=== PATIENT | male | born 1960 | race Caucasian/White ===

== ENCOUNTER 2024-12-26 13:49 | Inpatient (IN) | payer OTHER ==
[~2024-12-26] VITALS: Ht 177.8 cm; Wt 95.5 kg
[~2024-12-26 13:49] MED LIST: albumin (human) 25% 100 ML IV solution IV ONE
[2024-12-26 14:06] LABS: BASOPHILS % (AUTO) 0.2 % (0-1); EOSINOPHILS % (AUTO) 0.1 % (0-6); HEMATOCRIT 48.6 % (42.0-52.0); HEMOGLOBIN 15.9 g/dl (14.0-17.9); LYMPHOCYTES # (AUTO) 1.6 X10'3 (1.1-4.8); LYMPHOCYTES % (AUTO) 10.3 % (21-51); MEAN CORPUSCULAR HEMOGLOBIN 29.9 PG (27.0-31.0); MEAN CORPUSCULAR HGB CONC 32.8 g/dL (33.0-36.5); MEAN CORPUSCULAR VOLUME 91.2 FL (78-98); MEAN PLATELET VOLUME 8.1 FL (7.4-10.4); MONOCYTES # (AUTO) 0.9 X10'3 (0-0.9); MONOCYTES % (AUTO) 5.8 % (2-12); NEUTROPHILS # (AUTO) 13.3 X10'3 (1.8-7.7); NEUTROPHILS % (AUTO) 83.6 % (42-75); PLATELET COUNT 235 X10'3 (140-440); RED BLOOD COUNT 5.33 X10'6 (4.70-6.10); RED CELL DISTRIBUTION WIDTH 13.6 % (11.5-14.5); WHITE BLOOD COUNT 15.9 X10'3 (4.5-11.0)
[2024-12-26 14:36] LABS: ALANINE AMINOTRANSFERASE 33 U/L (12-78); ALKALINE PHOSPHATASE 84 IU/L (46-116); ANION GAP 5 (8-16); ASPARTATE AMINO TRANSFERASE 26 U/L (10-37); BILIRUBIN,TOTAL 0.6 MG/DL (0.1-1.0); BLOOD UREA NITROGEN 17 MG/DL (7-18); BUN/CREATININE RATIO 17.9 (10.0-20.0); CALCIUM 8.7 MG/DL (8.5-10.1); CHLORIDE 101 MMOL/L (99-107); CREATININE 0.95 MG/DL (0.60-1.10); GLUCOSE 102 MG/DL (70-104); POTASSIUM 4.6 MMOL/L (3.5-5.1); PRO BRAIN NATRIURETIC PEPTIDE 265 PG/ML (0-125); SODIUM 137 MMOL/L (135-145); TOTAL CARBON DIOXIDE 31.1 MMOL/L (24-32); TOTAL PROTEIN 7.9 G/DL (6.4-8.2); eCRCL 82 ML/MIN; eGFR 80 ML/MIN
[2024-12-26] MEDS ORDERED: heparin 10,000 units/1 ML INJ IV PRN (15:20)
[2024-12-26] MEDS: aspirin 325mg tablet, delayed-release (Ecotrin) PO ONE (15:22)
[2024-12-26] MEDS: heparin 10,000 units/1 ML INJ IV ONE (15:37)
[2024-12-26] MEDS: MESSAGE TO NURSING IV ONE (15:42)
[2024-12-26] MEDS: heparin 25,000 UNIT/250ml bag 250 ML IV PRN (15:42)
[2024-12-26] MEDS: HEPARIN DRIP-CARDIAC**PHARMACIST-TO-DOSE IV ONE (15:43)
[2024-12-26] MEDS ORDERED: potassium Cl 20 mEq SR tablet PO PRN ×2 (16:05)
[2024-12-26] MEDS ORDERED: morphine 2 MG/ML inj. syringe IV PRN ×2 (16:05)
[2024-12-26] MEDS ORDERED: magnesium sulf-water 2g/50mL 50 ML IV PRN (16:05)
[2024-12-26] MEDS ORDERED: potassium Cl 40MEQ/1/2NS 520ml 520 ML IV PRN (16:05)
[2024-12-26] MEDS ORDERED: acetaminophen 325mg tablet PO PRN (16:05)
[2024-12-26] MEDS ORDERED: magnesium sulf-water 4G/100mL 100 ML IV PRN (16:05)
[2024-12-26] MEDS ORDERED: ondansetron/PF 4mg/2ml inj IV PRN (16:05)
[2024-12-26] MEDS ORDERED: magnesium hydroxide 30ml (MOM) UD suspension PO PRN (16:05)
[2024-12-26] MEDS ORDERED: mag hydrox/Alum hydrox/simeth 30ml oral suspension PO PRN (16:05)
[2024-12-26] MEDS: PERFLUTREN PROTEIN-A MICROSPHR (Optison) 0.22 MG/ML 3ML VIAL IV ONE (16:05)
[2024-12-26] MEDS ORDERED: ATOR20TA PO (16:33)
[2024-12-26] MEDS ORDERED: MELO-100 PO (16:33)
[2024-12-26] MEDS: atorvastatin 20mg tablet PO ONE (16:56)
[2024-12-26] MEDS: normal saline 1000ml 1,000 ML IV SCH (16:57)
[2024-12-26] MEDS ORDERED: regadenoson 0.4mg/5ml syringe IV PRN (17:55)
[2024-12-26] MEDS ORDERED: nitroGLYCERIN 0.4mg SUBLingual tab SL PRN (17:55)
[2024-12-26] MEDS ORDERED: metoprolol tartrate 1mg/ml inj IV PRN (17:55)
[2024-12-26] MEDS ORDERED: aminophylline 500mg/20ml vial IV PRN (17:55)
[2024-12-26] MEDS ORDERED: fentaNYL/PF 50MCG/1 ML 2ML syringe ONE (18:51)
[2024-12-26] MEDS ORDERED: heparin 1,000unit/ml 10ml vial 0 ML ONE (18:51)
[2024-12-26] MEDS ORDERED: iohexol 350 MG/ML 50ML vial IV ONE ×2 (18:51→19:42)
[2024-12-26] MEDS ORDERED: midazolam 1 mg/ML 2ml injection ONE ×2 (18:51→19:55)
[2024-12-26] MEDS ORDERED: LIDOcaine 1% 30ml preserv. free vial ONE (18:51)
[2024-12-26] MEDS ORDERED: tirofiban 12.5mg in NS 250mL 250 ML IV ONE (18:52)
[2024-12-26] MEDS ORDERED: atropine 0.1mg/ml 10ml syringe ONE (18:52)
[2024-12-26] MEDS ORDERED: epiNEPHrine 0.1mg/ml 10ml syringe ONE (18:52)
[2024-12-26] MEDS ORDERED: iohexol 350MG/ML 100ml bottle IV ONE (18:52)
[2024-12-26] MEDS ORDERED: nitroGLYCERIN 500mcg/5mL D5W 5 ML IV ONE (19:28)
[2024-12-26] MEDS ORDERED: nitroGLYCERIN-Tridil 50MG/D5W 250 ML IV ONE (19:29)
[2024-12-26] MEDS ORDERED: metoprolol tartrate 1mg/ml inj IV ONE (19:34)
[2024-12-26] MEDS ORDERED: morphine 2 MG/ML inj. syringe ONE (19:48)
[2024-12-26] MEDS ORDERED: ondansetron/PF 4mg/2ml inj ONE (19:53)
[2024-12-26] MEDS: K and/or MAG REPLACEMENT MC SCH (20:00)
[2024-12-26] MEDS: docusate sod 100mg capsule PO SCH (20:00)
[2024-12-26] MEDS: ceFAZolin 2gm in dextrose, iso 50 ML IV ONE (20:40)
[2024-12-26] MEDS ORDERED: VANCOMYCIN/H2O 1.5g/300mL PB 300 ML IV ONE (20:40)
[2024-12-26] MEDS ORDERED: dextrose 50%-water 50ml dispensing syringe IV PRN (20:40)
[2024-12-26] MEDS: Insulin Reg/NS 100units/100mL 100 ML IV SCH (20:40)
[2024-12-26] MEDS ORDERED: insulin glargine (Lantus) pen - multi-dose SQ PRN (20:40)
[2024-12-26] MEDS: MESSAGE TO PHARMACY IJ ONE (20:40)
[2024-12-26] MEDS: VANCOMYCIN/WATER FOR INJ (PEG) 1.5GM/300 ML IVPB IV ONE (20:50)
[2024-12-26] MEDS ORDERED: gelatin sponge, absorbable (Gelfoam 100) sponge TP ONE (20:56)
[2024-12-26] MEDS ORDERED: BUPIVAcaine 0.5% inj/PF 30 ML ONE (20:56)
[2024-12-26] MEDS ORDERED: ceFAZolin 1000mg inj ONE (20:56)
[2024-12-26] MEDS: gelatin sponge, absorbable (Gelfoam-100 compressed) sponge TP ONE (21:00)
[2024-12-26] MEDS: ceFAZolin 1000mg inj IR ONE (21:00)
[2024-12-26] MEDS ORDERED: MIDAZolam 1 MG/ML 5ML VIAL ONE (21:19)
[2024-12-26] MEDS ORDERED: SUfentanil 50mcg/ml 1ml amp IV ONE (21:20)
[2024-12-26] MEDS ORDERED: rocuronium 10mg/ml inj IV ONE ×2 (21:23)
[2024-12-26] MEDS ORDERED: propofol 10mg/ml 20ml vial IV ONE (21:36)
[2024-12-26] MEDS ORDERED: vancomycin 1,000mg inj ONE (22:24)
[2024-12-26 22:43] LABS: ABG BASE EXCESS -2.5 mmol/L (-2.0-3.0); ABG HCO3 23.2 mmol/L (21.0-28.0); ABG OXYGEN SATURATION 94.7 % (94.0-98.0); ABG PCO2 43.3 mmHg (35.0-48.0); ABG PH 7.347 (7.350-7.450); ABG PO2 74.8 mmHg (83.0-108.0); CL (ABG) 103 mmol/L (98-107); FCOHb 0.4 % (0.5-1.5); FHHb 5.3 % (0.0-5.0); FMetHb 0.3 % (0.0-1.5); GLUCOSE (ABG) 118 mg/dl (65-95); IONIZED CA (ABG) 1.07 mmol/L (1.15-1.33); K (ABG) 3.6 mmol/L (3.40-4.50); TOTAL HEMOGLOBIN 14.4 G/dl (13.5-17.5)
[2024-12-26 23:31] LABS: ABG BASE EXCESS VENOUS -3.8 mmol/L (-2.0-3.0); ABG HCO3 VENOUS 25.4 mmol/L (22.0-29.0); ABG OXYGEN SATURATION VENOUS 82.7 % (60.0-85.0); ABG PH (VENOUS) 7.209 (7.320-7.430); ABG PO2 VENOUS 54.5 mmHg (23.0-48.0); CL (ABG) 103 mmol/L (98-107); FCOHb VENOUS 0.6 % (0.5-1.5); FHHb VENOUS 17.2 %; FMetHb VENOUS 0.1 % (0.5-1.5); FO2Hb VENOUS 82.1 % (0-80.0); GLUCOSE (ABG) 143 mg/dl (65-95); IONIZED CA (ABG) 1.08 mmol/L (1.15-1.33); K (ABG) 4.5 mmol/L (3.40-4.50); TOTAL HEMOGLOBIN 14.6 G/dl (13.5-17.5)
[2024-12-27] VITALS (36 sets, daily range): BP systolic 84–126; BP diastolic 48–76; PULSE 93–117; RESP 14–24; O2SAT 91–99
[2024-12-27 00:35] LABS: ABG BASE EXCESS -5.4 mmol/L (-2.0-3.0); ABG HCO3 21.2 mmol/L (21.0-28.0); ABG PH 7.282 (7.350-7.450); ABG PO2 197.4 mmHg (83.0-108.0); CL (ABG) 102 mmol/L (98-107); FCOHb 0.3 % (0.5-1.5); FMetHb 0.3 % (0.0-1.5); FO2Hb 98.4 % (94.0-98.0); GLUCOSE (ABG) 145 mg/dl (65-95); IONIZED CA (ABG) 0.94 mmol/L (1.15-1.33); K (ABG) 5.9 mmol/L (3.40-4.50); TOTAL HEMOGLOBIN 10.9 G/dl (13.5-17.5)
[2024-12-27 00:54] LABS: ABG BASE EXCESS -2.8 mmol/L (-2.0-3.0); ABG HCO3 22.7 mmol/L (21.0-28.0); ABG OXYGEN SATURATION 99.2 % (94.0-98.0); ABG PCO2 42.2 mmHg (35.0-48.0); ABG PH 7.348 (7.350-7.450); ABG PO2 259.1 mmHg (83.0-108.0); CL (ABG) 103 mmol/L (98-107); FCOHb 0.3 % (0.5-1.5); FHHb 0.8 % (0.0-5.0); FMetHb 0.3 % (0.0-1.5); FO2Hb 98.6 % (94.0-98.0); GLUCOSE (ABG) 147 mg/dl (65-95); IONIZED CA (ABG) 0.88 mmol/L (1.15-1.33); K (ABG) 5.4 mmol/L (3.40-4.50); TOTAL HEMOGLOBIN 11.1 G/dl (13.5-17.5)
[2024-12-27 01:13] LABS: ABG HCO3 VENOUS 25.4 mmol/L (22.0-29.0); ABG OXYGEN SATURATION VENOUS 87.2 % (60.0-85.0); ABG PCO2 VENOUS 44.4 mmHg (38.0-54.0); ABG PH (VENOUS) 7.375 (7.320-7.430); ABG PO2 VENOUS 54.2 mmHg (23.0-48.0); CL (ABG) 102 mmol/L (98-107); FCOHb VENOUS 0.3 % (0.5-1.5); FHHb VENOUS 12.7 %; FMetHb VENOUS 0.3 % (0.5-1.5); FO2Hb VENOUS 86.7 % (0-80.0); GLUCOSE (ABG) 153 mg/dl (65-95); IONIZED CA (ABG) 0.89 mmol/L (1.15-1.33); TOTAL HEMOGLOBIN 10.8 G/dl (13.5-17.5)
[2024-12-27 01:43] LABS: ABG BASE EXCESS -3.6 mmol/L (-2.0-3.0); ABG HCO3 20.7 mmol/L (21.0-28.0); ABG OXYGEN SATURATION 99.1 % (94.0-98.0); ABG PCO2 34.6 mmHg (35.0-48.0); ABG PH 7.395 (7.350-7.450); ABG PO2 251.7 mmHg (83.0-108.0); CL (ABG) 104 mmol/L (98-107); FCOHb 0.3 % (0.5-1.5); FHHb 0.9 % (0.0-5.0); FMetHb 0.3 % (0.0-1.5); FO2Hb 98.5 % (94.0-98.0); GLUCOSE (ABG) 156 mg/dl (65-95); IONIZED CA (ABG) 0.89 mmol/L (1.15-1.33); K (ABG) 4.4 mmol/L (3.40-4.50); TOTAL HEMOGLOBIN 10.7 G/dl (13.5-17.5)
[2024-12-27 02:29] LABS: ABG BASE EXCESS -3.3 mmol/L (-2.0-3.0); ABG HCO3 21.3 mmol/L (21.0-28.0); ABG OXYGEN SATURATION 99.9 % (94.0-98.0); ABG PCO2 36.1 mmHg (35.0-48.0); ABG PH 7.389 (7.350-7.450); CL (ABG) 102 mmol/L (98-107); FCOHb 0.8 % (0.5-1.5); FHHb 0.1 % (0.0-5.0); FMetHb 0.3 % (0.0-1.5); FO2Hb 98.8 % (94.0-98.0); GLUCOSE (ABG) 147 mg/dl (65-95); IONIZED CA (ABG) 1.15 mmol/L (1.15-1.33); K (ABG) 4.4 mmol/L (3.40-4.50); TOTAL HEMOGLOBIN 8.8 G/dl (13.5-17.5)
[2024-12-27 03:00] LABS: ABG BASE EXCESS VENOUS -4.8 mmol/L (-2.0-3.0); ABG HCO3 VENOUS 21.7 mmol/L (22.0-29.0); ABG OXYGEN SATURATION VENOUS 70.7 % (60.0-85.0); ABG PCO2 VENOUS 47.2 mmHg (38.0-54.0); ABG PH (VENOUS) 7.281 (7.320-7.430); CL (ABG) 103 mmol/L (98-107); FCOHb VENOUS 0.3 % (0.5-1.5); FHHb VENOUS 29.2 %; FO2Hb VENOUS 70.5 % (0-80.0); GLUCOSE (ABG) 128 mg/dl (65-95); IONIZED CA (ABG) 1.19 mmol/L (1.15-1.33); K (ABG) 3.9 mmol/L (3.40-4.50); TOTAL HEMOGLOBIN 9.3 G/dl (13.5-17.5)
[2024-12-27] MEDS ORDERED: albumin (Human) 5% 250ml 250 ML IV ONE (03:54)
[2024-12-27] MEDS ORDERED: rocuronium 10mg/ml inj IV ONE (03:54)
[2024-12-27] MEDS ORDERED: potassium CL 10mEq/100ml bag 100 ML IV PRN (04:15)
[2024-12-27] MEDS ORDERED: normal saline 250ml IV soln 250 ML IV PRN (04:15)
[2024-12-27] MEDS ORDERED: niCARDipine-NS 40mg/200ml IVPB 200 ML IV PRN (04:15)
[2024-12-27] MEDS ORDERED: insulin glargine (Lantus) pen - multi-dose SQ PRN (04:15)
[2024-12-27] MEDS ORDERED: potassium Cl 40MEQ/1/2NS 520ml 520 ML IV PRN (04:15)
[2024-12-27] MEDS ORDERED: sodium phosphate inj. 30 MMOL in dextrose 5%-water 250 ML IV PRN (04:15)
[2024-12-27] MEDS ORDERED: bisacodyl 10mg suppository rectal RC PRN (04:15)
[2024-12-27] MEDS ORDERED: magnesium hydroxide 30ml (MOM) UD suspension PO PRN (04:15)
[2024-12-27] MEDS ORDERED: DOBUTamine-DoBUTrex 500mg/D5W 250 ML IV PRN (04:15)
[2024-12-27] MEDS ORDERED: dextrose 50%-water 50ml dispensing syringe IV PRN (04:15)
[2024-12-27] MEDS ORDERED: mineral oil 133ml enema RC PRN (04:15)
[2024-12-27] MEDS ORDERED: nitroGLYCERIN-Tridil 50MG/D5W 250 ML IV PRN (04:15)
[2024-12-27] MEDS ORDERED: Neutra Phos packet PO PRN (04:15)
[2024-12-27 04:37] LABS: ABG BASE EXCESS -1.5 mmol/L (-2.0-3.0); ABG HCO3 23.2 mmol/L (21.0-28.0); ABG OXYGEN SATURATION 94.2 % (94.0-98.0); ABG PCO2 (T) 37.8 mmHg (35.0-48.0); ABG PH (T) 7.403 (7.350-7.450); ABG PO2 (T) 67.8 mmHg (83.0-108.0); FCOHb 0.8 % (0.5-1.5); FHHb 5.7 % (0.0-5.0); FMetHb 0.3 % (0.0-1.5); FO2Hb 93.2 % (94.0-98.0); MODE VENT - SIMV; PATIENT TEMPERATURE 36.3; PEEP 5 cm H2O; RESPIRATORY RATE 14 b/min; TIDAL VOLUME 550 mL; TOTAL HEMOGLOBIN 10.9 G/dl (13.5-17.5)
[2024-12-27 04:38] LABS: BASOPHILS % (AUTO) 0.1 % (0-1); EOSINOPHILS % (AUTO) 0 % (0-6); HEMATOCRIT 29.2 % (42.0-52.0); HEMOGLOBIN 10.1 g/dl (14.0-17.9); LYMPHOCYTES # (AUTO) 1.1 X10'3 (1.1-4.8); LYMPHOCYTES % (AUTO) 5.2 % (21-51); MEAN CORPUSCULAR HEMOGLOBIN 31.6 PG (27.0-31.0); MEAN CORPUSCULAR HGB CONC 34.7 g/dL (33.0-36.5); MEAN PLATELET VOLUME 8.2 FL (7.4-10.4); MONOCYTES # (AUTO) 2.2 X10'3 (0-0.9); MONOCYTES % (AUTO) 10.2 % (2-12); NEUTROPHILS # (AUTO) 18.2 X10'3 (1.8-7.7); NEUTROPHILS % (AUTO) 84.5 % (42-75); PLATELET COUNT 177 X10'3 (140-440); RED CELL DISTRIBUTION WIDTH 13.6 % (11.5-14.5); WHITE BLOOD COUNT 21.5 X10'3 (4.5-11.0)
[2024-12-27 04:53] LABS: APTT 34 SECONDS (22-32); FIBRINOGEN 136 MG/DL (177-424); INR 1.4 INR; PROTHROMBIN TIME 14.3 SECONDS (9.0-12.0)
[2024-12-27] MEDS: Insulin Reg/NS 100units/100mL 100 ML IV SCH (04:53)
[2024-12-27 04:54] LABS: ALANINE AMINOTRANSFERASE 24 U/L (12-78); ALBUMIN 2.5 G/DL (3.4-5.0); ALBUMIN/GLOBULIN RATIO 1.3 (1.1-1.5); ALKALINE PHOSPHATASE 42 IU/L (46-116); ANION GAP 12 (8-16); BILIRUBIN,TOTAL 1.2 MG/DL (0.1-1.0); BLOOD UREA NITROGEN 13 MG/DL (7-18); BUN/CREATININE RATIO 11.2 (10.0-20.0); CALCIUM 7.8 MG/DL (8.5-10.1); CHLORIDE 109 MMOL/L (99-107); CREATININE 1.16 MG/DL (0.60-1.10); GLUCOSE 129 MG/DL (70-104); MAGNESIUM 2.6 MG/DL (1.5-2.4); SODIUM 147 MMOL/L (135-145); TOTAL CARBON DIOXIDE 26.3 MMOL/L (24-32); TOTAL PROTEIN 4.5 G/DL (6.4-8.2); eCRCL 67 ML/MIN; eGFR 64 ML/MIN
[2024-12-27] MEDS: propofol 1000mg/100ml bottle 100 ML IV ONE (04:55)
[2024-12-27] MEDS: propofol 1000mg/100ml bottle 100 ML IV SCH (04:56)
[2024-12-27] MEDS: aspirin 81mg tab.chew PO SCH (04:56)
[2024-12-27] MEDS: sodium chloride 0.45% 1,000 ML IV SCH (04:57)
[2024-12-27 05:09] LABS: ASPARTATE AMINO TRANSFERASE 81 U/L (10-37); PHOSPHORUS 2.8 MG/DL (2.3-4.5); POTASSIUM 4.2 MMOL/L (3.5-5.1)
[2024-12-27 05:59] LABS: ACT @ 1.70 U 310 SEC (193-297); ACT @ 2.84 U 383 SEC (260-420); BASELINE ACT 158 SEC (101-148); PATIENT WEIGHT 91.0k KG
[2024-12-27] MEDS: morphine 4 MG/ML inj SYRINge IV PRN (06:11)
[2024-12-27 07:18] LABS: ABG PO2 423.6 mmHg (83.0-108.0)
[2024-12-27 07:18] LABS: ABG PCO2 VENOUS 65.2 mmHg (38.0-54.0)
[2024-12-27] MEDS: potassium Cl 20mEq/100mL bag 100 ML IV PRN (07:42)
[2024-12-27] MEDS: sennosides/docusate sodium tablet PO SCH (07:44)
[2024-12-27] MEDS: ceFAZolin/D5W- 1GM premix 50 ML IV SCH (07:48)
[2024-12-27] MEDS ORDERED: mupirocin 2% ointment 22GM NS SCH (08:00)
[2024-12-27] MEDS: mupirocin 2% nasal ointment 1gm UD NS SCH (08:32)
[2024-12-27] MEDS: vancomycin/NS 1 GM ADD-VANTAGE 250 ML IV SCH (08:32)
[2024-12-27] MEDS: gabapentin 300mg capsule PO SCH (08:32)
[2024-12-27] MEDS: albumin (Human) 5% 250ml 250 ML IV PRN (10:28)
[2024-12-27 12:06] LABS: BASOPHILS % (AUTO) 0 % (0-1); EOSINOPHILS % (AUTO) 0 % (0-6); HEMATOCRIT 29.4 % (42.0-52.0); HEMOGLOBIN 9.5 g/dl (14.0-17.9); LYMPHOCYTES # (AUTO) 0.5 X10'3 (1.1-4.8); LYMPHOCYTES % (AUTO) 3.8 % (21-51); MEAN CORPUSCULAR HEMOGLOBIN 29.7 PG (27.0-31.0); MEAN CORPUSCULAR HGB CONC 32.2 g/dL (33.0-36.5); MEAN CORPUSCULAR VOLUME 92.1 FL (78-98); MEAN PLATELET VOLUME 8.6 FL (7.4-10.4); MONOCYTES % (AUTO) 7.2 % (2-12); NEUTROPHILS # (AUTO) 12.3 X10'3 (1.8-7.7); PLATELET COUNT 168 X10'3 (140-440); RED BLOOD COUNT 3.19 X10'6 (4.70-6.10); RED CELL DISTRIBUTION WIDTH 13.9 % (11.5-14.5); WHITE BLOOD COUNT 13.8 X10'3 (4.5-11.0)
[2024-12-27 12:18] LABS: ALBUMIN 3.3 G/DL (3.4-5.0); ANION GAP 12 (8-16); BLOOD UREA NITROGEN 17 MG/DL (7-18); BUN/CREATININE RATIO 12.6 (10.0-20.0); CALCIUM 7.7 MG/DL (8.5-10.1); CHLORIDE 109 MMOL/L (99-107); CREATININE 1.35 MG/DL (0.60-1.10); GLUCOSE 193 MG/DL (70-104); MAGNESIUM 2.3 MG/DL (1.5-2.4); PHOSPHORUS 2.3 MG/DL (2.3-4.5); POTASSIUM 4.1 MMOL/L (3.5-5.1); SODIUM 145 MMOL/L (135-145); TOTAL CARBON DIOXIDE 23.8 MMOL/L (24-32); eCRCL 58 ML/MIN; eGFR 53 ML/MIN
[2024-12-27] MEDS: morphine 2 MG/ML inj. syringe IV PRN (12:21)
[2024-12-27] MEDS: magnesium sulf-water 2g/50mL 50 ML IV PRN (12:38)
[2024-12-27] MEDS: albuterol 2.5 MG/3 ML nebule NEB SCH (12:45)
[2024-12-27] MEDS: ipratropium 0.5 MG/2.5ML nebule IH SCH (12:45)
[2024-12-27] MEDS: milrinone (Primacor) 20mg/D5W 100 ML IV PRN (14:38)
[2024-12-27] MEDS: NORepinephrine 8mg/ 250ml NS 250 ML IV SCH (17:35)
[2024-12-27] MEDS: atorvastatin 10mg tablet PO SCH (20:20)
[2024-12-27] MEDS: HYDROcodone/acetaminophen 10/325mg tab PO PRN (20:20)
[2024-12-27 20:25] LABS: ALBUMIN 3.2 G/DL (3.4-5.0); ANION GAP 9 (8-16); BLOOD UREA NITROGEN 18 MG/DL (7-18); BUN/CREATININE RATIO 14.9 (10.0-20.0); CALCIUM 7.7 MG/DL (8.5-10.1); CHLORIDE 110 MMOL/L (99-107); CREATININE 1.21 MG/DL (0.60-1.10); GLUCOSE 128 MG/DL (70-104); MAGNESIUM 2.4 MG/DL (1.5-2.4); SODIUM 145 MMOL/L (135-145); TOTAL CARBON DIOXIDE 26.2 MMOL/L (24-32); eCRCL 65 ML/MIN; eGFR 61 ML/MIN
[2024-12-27] MEDS: potassium Cl 40MEQ/270ML bag 250 ML IV PRN (22:04)
[2024-12-27] MEDS: sodium phosphate inj. 15 MMOL in dextrose 5%-water 250 ML IV PRN (23:59)
[2024-12-28] VITALS (51 sets, daily range): BP systolic 89–160; BP diastolic 51–78; PULSE 85–113; RESP 11–20; TEMP 99.2–99.6; O2SAT 88–97
[2024-12-28 03:27] LABS: BASOPHILS % (AUTO) 0.1 % (0-1); EOSINOPHILS % (AUTO) 0 % (0-6); LYMPHOCYTES % (AUTO) 6.2 % (21-51); MEAN CORPUSCULAR HEMOGLOBIN 29.8 PG (27.0-31.0); MEAN CORPUSCULAR HGB CONC 32.5 g/dL (33.0-36.5); MEAN CORPUSCULAR VOLUME 91.8 FL (78-98); MEAN PLATELET VOLUME 9.1 FL (7.4-10.4); MONOCYTES # (AUTO) 1.2 X10'3 (0-0.9); MONOCYTES % (AUTO) 7.7 % (2-12); NEUTROPHILS # (AUTO) 13.9 X10'3 (1.8-7.7); PLATELET COUNT 110 X10'3 (140-440); RED BLOOD COUNT 2.34 X10'6 (4.70-6.10); RED CELL DISTRIBUTION WIDTH 13.8 % (11.5-14.5); WHITE BLOOD COUNT 16.1 X10'3 (4.5-11.0)
[2024-12-28 03:41] LABS: APTT 33 SECONDS (22-32); INR 1.2 INR; PROTHROMBIN TIME 12.1 SECONDS (9.0-12.0)
[2024-12-28 03:45] LABS: ABG HCO3 25.6 mmol/L (21.0-28.0); ABG OXYGEN SATURATION 92.9 % (94.0-98.0); ABG PCO2 (T) 41.9 mmHg (35.0-48.0); ABG PH (T) 7.406 (7.350-7.450); ABG PO2 (T) 68.6 mmHg (83.0-108.0); FCOHb 0.9 % (0.5-1.5); FMetHb 0.1 % (0.0-1.5); MODE prvc; PATIENT TEMPERATURE 37.4; PEEP 5 cm H2O; RESPIRATORY RATE 25 b/min; TIDAL VOLUME 550 mL; TOTAL HEMOGLOBIN 7.5 G/dl (13.5-17.5)
[2024-12-28 03:46] LABS: ALANINE AMINOTRANSFERASE 33 U/L (12-78); ALBUMIN 2.9 G/DL (3.4-5.0); ALBUMIN/GLOBULIN RATIO 1.6 (1.1-1.5); ALKALINE PHOSPHATASE 33 IU/L (46-116); ANION GAP 4 (8-16); ASPARTATE AMINO TRANSFERASE 119 U/L (10-37); BILIRUBIN,TOTAL 0.7 MG/DL (0.1-1.0); BLOOD UREA NITROGEN 21 MG/DL (7-18); BUN/CREATININE RATIO 17.8 (10.0-20.0); CALCIUM 7.3 MG/DL (8.5-10.1); CHLORIDE 111 MMOL/L (99-107); CREATININE 1.18 MG/DL (0.60-1.10); GLUCOSE 161 MG/DL (70-104); MAGNESIUM 2.8 MG/DL (1.5-2.4); PHOSPHORUS 2.9 MG/DL (2.3-4.5); POTASSIUM 4.7 MMOL/L (3.5-5.1); SODIUM 143 MMOL/L (135-145); TOTAL CARBON DIOXIDE 28.3 MMOL/L (24-32); TOTAL PROTEIN 4.7 G/DL (6.4-8.2); TRIGLYCERIDES 61 MG/DL (20-135); eCRCL 66 ML/MIN; eGFR 62 ML/MIN
[2024-12-28 03:50] LABS: HEMATOCRIT 21.5 % (42.0-52.0)
[2024-12-28] MEDS: ipratropium/albuterol 3ml nebule NEB SCH (07:51)
[2024-12-28] MEDS: metoprolol tartrate 12.5mg (1/2 tablet) PO SCH (08:00)
[2024-12-28] MEDS: furosemide 40mg/4ml inj IV ONE (11:11)
[2024-12-28] MEDS: dexmedetomidin/NS 400mcg/100ml 100 ML IV SCH (13:12)
[2024-12-28 16:00] LABS: ABG BASE EXCESS 2.3 mmol/L (-2.0-3.0); ABG HCO3 26.7 mmol/L (21.0-28.0); ABG OXYGEN SATURATION 95.8 % (94.0-98.0); ABG PCO2 (T) 41.1 mmHg (35.0-48.0); ABG PH (T) 7.432 (7.350-7.450); ABG PO2 (T) 78.1 mmHg (83.0-108.0); FHHb 4.2 % (0.0-5.0); FMetHb 0.3 % (0.0-1.5); FO2Hb 95.5 % (94.0-98.0); MODE VENT - CPAP; PATIENT TEMPERATURE 37.3; PEEP 5 cm H2O; TIDAL VOLUME 800 mL; TOTAL HEMOGLOBIN 10.1 G/dl (13.5-17.5)
[2024-12-28] MEDS: INSULIN LISPRO 100 UNIT/ML INSULN.PEN MULTI-DOSE SQ SCH (21:00)
[2024-12-29] VITALS (31 sets, daily range): BP systolic 98–177; BP diastolic 59–103; PULSE 85–105; RESP 13–21; O2SAT 91–96
[2024-12-29 02:40] LABS: EOSINOPHILS % (AUTO) 0 % (0-6); HEMOGLOBIN 8.6 g/dl (14.0-17.9); MEAN CORPUSCULAR HEMOGLOBIN 30.4 PG (27.0-31.0); MONOCYTES # (AUTO) 1.5 X10'3 (0-0.9); NEUTROPHILS # (AUTO) 14.6 X10'3 (1.8-7.7)
[2024-12-29 02:42] LABS: BASOPHILS % (AUTO) 0.1 % (0-1); HEMATOCRIT 25.6 % (42.0-52.0); LYMPHOCYTES # (AUTO) 1.1 X10'3 (1.1-4.8); LYMPHOCYTES % (AUTO) 6.6 % (21-51); MEAN CORPUSCULAR HGB CONC 33.5 g/dL (33.0-36.5); MONOCYTES % (AUTO) 8.7 % (2-12); NEUTROPHILS % (AUTO) 84.6 % (42-75); PLATELET COUNT 68 X10'3 (140-440); RED BLOOD COUNT 2.82 X10'6 (4.70-6.10); RED CELL DISTRIBUTION WIDTH 14.6 % (11.5-14.5); WHITE BLOOD COUNT 17.2 X10'3 (4.5-11.0)
[2024-12-29 02:55] LABS: ANION GAP 3 (8-16); BLOOD UREA NITROGEN 25 MG/DL (7-18); BUN/CREATININE RATIO 25.8 (10.0-20.0); CALCIUM 7.4 MG/DL (8.5-10.1); CHLORIDE 108 MMOL/L (99-107); CREATININE 0.97 MG/DL (0.60-1.10); GLUCOSE 155 MG/DL (70-104); MAGNESIUM 2.2 MG/DL (1.5-2.4); PHOSPHORUS 3.3 MG/DL (2.3-4.5); POTASSIUM 4.7 MMOL/L (3.5-5.1); SODIUM 141 MMOL/L (135-145); TOTAL CARBON DIOXIDE 30.1 MMOL/L (24-32); eCRCL 80 ML/MIN; eGFR 78 ML/MIN
[2024-12-29] MEDS: pantoprazole 40mg Tablet.DR PO SCH (07:17)
[2024-12-29] MEDS: metoprolol tartrate 12.5mg (1/2 tablet) PO ONE (09:08)
[2024-12-29] MEDS: furosemide 40mg/4ml inj IV ONE (13:15)
[2024-12-29] MEDS: acetaminophen 1,000mg/100ml IV 100 ML IV SCH (13:15)
[2024-12-29] MEDS ORDERED: nitroGLYCERIN-Tridil 50MG/D5W 250 ML IV PRN (14:20)
[2024-12-29] MEDS: ondansetron/PF 4mg/2ml inj IV PRN (15:27)
[2024-12-29] MEDS: metoprolol tartrate 25mg tablet PO SCH (20:04)
[2024-12-30] VITALS (45 sets, daily range): BP systolic 120–158; BP diastolic 71–104; PULSE 71–100; RESP 13–22; O2SAT 90–97
[2024-12-30 03:41] LABS: BASOPHILS % (AUTO) 0.1 % (0-1); EOSINOPHILS % (AUTO) 0 % (0-6); HEMATOCRIT 27.5 % (42.0-52.0); HEMOGLOBIN 9.5 g/dl (14.0-17.9); LYMPHOCYTES # (AUTO) 1.6 X10'3 (1.1-4.8); MEAN CORPUSCULAR HEMOGLOBIN 31.3 PG (27.0-31.0); MEAN CORPUSCULAR HGB CONC 34.5 g/dL (33.0-36.5); MEAN CORPUSCULAR VOLUME 90.9 FL (78-98); MEAN PLATELET VOLUME 8.7 FL (7.4-10.4); MONOCYTES # (AUTO) 1.7 X10'3 (0-0.9); MONOCYTES % (AUTO) 8.8 % (2-12); NEUTROPHILS # (AUTO) 16.5 X10'3 (1.8-7.7); NEUTROPHILS % (AUTO) 83.1 % (42-75); PLATELET COUNT 98 X10'3 (140-440); RED BLOOD COUNT 3.03 X10'6 (4.70-6.10); RED CELL DISTRIBUTION WIDTH 14.2 % (11.5-14.5); WHITE BLOOD COUNT 19.8 X10'3 (4.5-11.0)
[2024-12-30] MEDS: metoclopramide 5 mg/ml inj IV PRN (03:53)
[2024-12-30 04:01] LABS: ALBUMIN 3.4 G/DL (3.4-5.0); ANION GAP 5 (8-16); BLOOD UREA NITROGEN 23 MG/DL (7-18); BUN/CREATININE RATIO 27.7 (10.0-20.0); CHLORIDE 103 MMOL/L (99-107); CREATININE 0.83 MG/DL (0.60-1.10); GLUCOSE 134 MG/DL (70-104); MAGNESIUM 1.9 MG/DL (1.5-2.4); PHOSPHORUS 2.7 MG/DL (2.3-4.5); POTASSIUM 4.2 MMOL/L (3.5-5.1); SODIUM 140 MMOL/L (135-145); TOTAL CARBON DIOXIDE 31.7 MMOL/L (24-32); eCRCL 94 ML/MIN; eGFR > 90 ML/MIN
[2024-12-30] MEDS: furosemide 20MG tablet PO SCH (08:12)
[2024-12-30] MEDS: metoprolol tartrate 25mg tablet PO ONE (09:54)
[2024-12-30] MEDS: lisinopril 5mg tablet PO SCH ×2 (10:32→17:15)
[2024-12-30] MEDS: lisinopril 10 MG tablet PO ONE (17:53)
[2024-12-30] MEDS: metoprolol tartrate 25mg tablet PO SCH (20:20)
[2024-12-30] MEDS: heparin, porcine 5000 units/ml vial SQ SCH (20:22)
[2024-12-30] MEDS: tamsulosin 0.4mg capsule PO SCH (20:39)
[2024-12-30] MEDS: HYDROcodone/acetaminophen 10/325mg tab PO PRN (20:40)
[2024-12-31] VITALS (40 sets, daily range): BP systolic 84–149; BP diastolic 60–124; PULSE 68–105; RESP 8–26; O2SAT 89–96
[2024-12-31 03:29] LABS: BASOPHILS % (AUTO) 0 % (0-1); EOSINOPHILS # (AUTO) 0.1 X10'3 (0-0.9); EOSINOPHILS % (AUTO) 0.7 % (0-6); HEMATOCRIT 30.8 % (42.0-52.0); HEMOGLOBIN 10.2 g/dl (14.0-17.9); LYMPHOCYTES # (AUTO) 2.1 X10'3 (1.1-4.8); LYMPHOCYTES % (AUTO) 12.8 % (21-51); MEAN CORPUSCULAR HGB CONC 33.1 g/dL (33.0-36.5); MEAN CORPUSCULAR VOLUME 90.6 FL (78-98); MEAN PLATELET VOLUME 8.8 FL (7.4-10.4); MONOCYTES # (AUTO) 1.6 X10'3 (0-0.9); MONOCYTES % (AUTO) 9.9 % (2-12); NEUTROPHILS # (AUTO) 12.4 X10'3 (1.8-7.7); NEUTROPHILS % (AUTO) 76.6 % (42-75); PLATELET COUNT 144 X10'3 (140-440); RED CELL DISTRIBUTION WIDTH 14.1 % (11.5-14.5); WHITE BLOOD COUNT 16.2 X10'3 (4.5-11.0)
[2024-12-31 03:46] LABS: ALBUMIN 3.3 G/DL (3.4-5.0); ANION GAP 4 (8-16); BLOOD UREA NITROGEN 26 MG/DL (7-18); BUN/CREATININE RATIO 33.3 (10.0-20.0); CALCIUM 8.3 MG/DL (8.5-10.1); CHLORIDE 103 MMOL/L (99-107); CREATININE 0.78 MG/DL (0.60-1.10); GLUCOSE 107 MG/DL (70-104); MAGNESIUM 1.8 MG/DL (1.5-2.4); POTASSIUM 4.1 MMOL/L (3.5-5.1); SODIUM 138 MMOL/L (135-145); TOTAL CARBON DIOXIDE 30.7 MMOL/L (24-32); eCRCL 100 ML/MIN; eGFR > 90 ML/MIN
[2024-12-31 04:33] LABS: TOTAL CELLS COUNTED 100
[2024-12-31 04:34] LABS: PLATELET ESTIMATE NORMAL
[2024-12-31] MEDS: magnesium sulf-water 4G/100mL 100 ML IV PRN (05:14)
[2024-12-31] MEDS: potassium Cl 20 mEq SR tablet PO PRN (05:14)
[2024-12-31] MEDS: normal saline 500ml IV soln 500 ML IV SCH (09:11)
[2024-12-31] MEDS: lactose-reduced food (Ensure Enlive) - 237ml bottle PO SCH (18:08)
[2024-12-31] MEDS: metoprolol tartrate 25mg tablet PO SCH (20:37)
[2025-01-01] VITALS (26 sets, daily range): BP systolic 78–137; BP diastolic 47–99; PULSE 76–114; RESP 12–25; TEMP 97.3; O2SAT 90–97
[2025-01-01 02:59] LABS: PHOSPHORUS 3.3 MG/DL (2.3-4.5); POTASSIUM 4.2 MMOL/L (3.5-5.1)
[2025-01-01 08:48] LABS: BASOPHILS % (AUTO) 0.3 % (0-1); EOSINOPHILS # (AUTO) 0.2 X10'3 (0-0.9); EOSINOPHILS % (AUTO) 1.6 % (0-6); HEMATOCRIT 32.5 % (42.0-52.0); HEMOGLOBIN 10.9 g/dl (14.0-17.9); LYMPHOCYTES # (AUTO) 2.1 X10'3 (1.1-4.8); LYMPHOCYTES % (AUTO) 14.4 % (21-51); MEAN CORPUSCULAR HEMOGLOBIN 30.6 PG (27.0-31.0); MEAN CORPUSCULAR HGB CONC 33.6 g/dL (33.0-36.5); MEAN PLATELET VOLUME 8.1 FL (7.4-10.4); MONOCYTES # (AUTO) 1.2 X10'3 (0-0.9); MONOCYTES % (AUTO) 8.1 % (2-12); NEUTROPHILS # (AUTO) 10.9 X10'3 (1.8-7.7); NEUTROPHILS % (AUTO) 75.6 % (42-75); PLATELET COUNT 208 X10'3 (140-440); RED BLOOD COUNT 3.57 X10'6 (4.70-6.10); RED CELL DISTRIBUTION WIDTH 13.8 % (11.5-14.5); WHITE BLOOD COUNT 14.4 X10'3 (4.5-11.0)
[2025-01-01] MEDS: acetaminophen 325mg tablet PO PRN (08:53)
[2025-01-01] MEDS: albumin (Human) 5% 250ml 250 ML IV ONE (08:56)
[2025-01-01 09:25] LABS: ALANINE AMINOTRANSFERASE 42 U/L (12-78); ALBUMIN 3.2 G/DL (3.4-5.0); ALBUMIN/GLOBULIN RATIO 1.4 (1.1-1.5); ALKALINE PHOSPHATASE 63 IU/L (46-116); ANION GAP 9 (8-16); ASPARTATE AMINO TRANSFERASE 34 U/L (10-37); BILIRUBIN,TOTAL 1.1 MG/DL (0.1-1.0); BLOOD UREA NITROGEN 29 MG/DL (7-18); BUN/CREATININE RATIO 34.5 (10.0-20.0); CALCIUM 8.3 MG/DL (8.5-10.1); CHLORIDE 104 MMOL/L (99-107); CREATININE 0.84 MG/DL (0.60-1.10); GLUCOSE 114 MG/DL (70-104); SODIUM 139 MMOL/L (135-145); TOTAL CARBON DIOXIDE 26.5 MMOL/L (24-32); TOTAL PROTEIN 5.5 G/DL (6.4-8.2); eCRCL 93 ML/MIN; eGFR > 90 ML/MIN
[2025-01-01 09:54] LABS: PLATELET ESTIMATE NORMAL; TOTAL CELLS COUNTED 100
[2025-01-01] MEDS ORDERED: ringers solution, lacted 1,000 ML IV SCH (11:40)
[2025-01-01] MEDS: midodrine 5mg tablet PO SCH (11:43)
[2025-01-01] MEDS ORDERED: magnesium sulf-water 2g/50mL 50 ML IV PRN (11:45)
[2025-01-01] MEDS ORDERED: magnesium sulf-water 4G/100mL 100 ML IV PRN (11:45)
[2025-01-01] MEDS ORDERED: potassium Cl 40MEQ/270ML bag 250 ML IV PRN (11:45)
[2025-01-01] MEDS ORDERED: potassium Cl 40MEQ/1/2NS 520ml 520 ML IV PRN (11:45)
[2025-01-01] MEDS ORDERED: potassium Cl 20 mEq SR tablet PO PRN ×2 (11:45)
[2025-01-01] MEDS ORDERED: potassium Cl 20mEq/100mL bag 100 ML IV PRN (11:45)
[2025-01-01] MEDS ORDERED: potassium CL 10mEq/100ml bag 100 ML IV PRN (11:45)
[2025-01-01] MEDS: ringers solution, lacted 1,000 ML IV SCH (12:01)
[2025-01-01] MEDS ORDERED: metoprolol tartrate 12.5mg (1/2 tablet) PO SCH (20:00)
[2025-01-01] MEDS: magnesium Cl slow-release 64mg tablet PO SCH (21:01)
[2025-01-02] VITALS (12 sets, daily range): BP systolic 103–140; BP diastolic 63–93; PULSE 86–117; RESP 14–22; TEMP 97.1–98; O2SAT 93–99
[2025-01-02] MEDS: acetaminophen 325mg tablet PO PRN (01:29)
[2025-01-02 06:49] LABS: BASOPHILS % (AUTO) 0.2 % (0-1); EOSINOPHILS # (AUTO) 0.3 X10'3 (0-0.9); EOSINOPHILS % (AUTO) 2.3 % (0-6); HEMATOCRIT 29.6 % (42.0-52.0); HEMOGLOBIN 9.9 g/dl (14.0-17.9); LYMPHOCYTES # (AUTO) 3.2 X10'3 (1.1-4.8); LYMPHOCYTES % (AUTO) 20.7 % (21-51); MEAN CORPUSCULAR HEMOGLOBIN 30.4 PG (27.0-31.0); MEAN CORPUSCULAR HGB CONC 33.4 g/dL (33.0-36.5); MEAN CORPUSCULAR VOLUME 91.1 FL (78-98); MEAN PLATELET VOLUME 8.2 FL (7.4-10.4); MONOCYTES # (AUTO) 1.4 X10'3 (0-0.9); MONOCYTES % (AUTO) 9.3 % (2-12); NEUTROPHILS # (AUTO) 10.4 X10'3 (1.8-7.7); NEUTROPHILS % (AUTO) 67.5 % (42-75); PLATELET COUNT 232 X10'3 (140-440); RED BLOOD COUNT 3.25 X10'6 (4.70-6.10); WHITE BLOOD COUNT 15.4 X10'3 (4.5-11.0)
[2025-01-02 07:18] LABS: ALBUMIN 3.1 G/DL (3.4-5.0); ANION GAP 9 (8-16); BLOOD UREA NITROGEN 27 MG/DL (7-18); BUN/CREATININE RATIO 32.5 (10.0-20.0); CALCIUM 8.3 MG/DL (8.5-10.1); CHLORIDE 105 MMOL/L (99-107); CREATININE 0.83 MG/DL (0.60-1.10); GLUCOSE 98 MG/DL (70-104); MAGNESIUM 1.8 MG/DL (1.5-2.4); POTASSIUM 4.3 MMOL/L (3.5-5.1); SODIUM 140 MMOL/L (135-145); TOTAL CARBON DIOXIDE 26.4 MMOL/L (24-32); eCRCL 94 ML/MIN; eGFR > 90 ML/MIN
[2025-01-03] VITALS (7 sets, daily range): BP systolic 109–131; BP diastolic 61–88; PULSE 80–119; RESP 18–22; TEMP 97–97.9; O2SAT 95–97
[2025-01-03 07:53] LABS: BASOPHILS # (AUTO) 0.1 X10'3 (0-0.2); BASOPHILS % (AUTO) 0.4 % (0-1); EOSINOPHILS # (AUTO) 0.4 X10'3 (0-0.9); EOSINOPHILS % (AUTO) 2.2 % (0-6); HEMATOCRIT 33.4 % (42.0-52.0); HEMOGLOBIN 11.1 g/dl (14.0-17.9); LYMPHOCYTES # (AUTO) 2.6 X10'3 (1.1-4.8); LYMPHOCYTES % (AUTO) 16.5 % (21-51); MEAN CORPUSCULAR HEMOGLOBIN 30.3 PG (27.0-31.0); MEAN CORPUSCULAR HGB CONC 33.3 g/dL (33.0-36.5); MEAN PLATELET VOLUME 8.2 FL (7.4-10.4); MONOCYTES # (AUTO) 1.5 X10'3 (0-0.9); MONOCYTES % (AUTO) 9.5 % (2-12); NEUTROPHILS # (AUTO) 11.3 X10'3 (1.8-7.7); NEUTROPHILS % (AUTO) 71.4 % (42-75); PLATELET COUNT 290 X10'3 (140-440); RED BLOOD COUNT 3.67 X10'6 (4.70-6.10); WHITE BLOOD COUNT 15.8 X10'3 (4.5-11.0)
[2025-01-03 08:00] LABS: ALBUMIN 3.2 G/DL (3.4-5.0); ANION GAP 9 (8-16); BLOOD UREA NITROGEN 23 MG/DL (7-18); CALCIUM 8.7 MG/DL (8.5-10.1); CHLORIDE 105 MMOL/L (99-107); CREATININE 0.82 MG/DL (0.60-1.10); GLUCOSE 98 MG/DL (70-104); MAGNESIUM 1.9 MG/DL (1.5-2.4); POTASSIUM 4.2 MMOL/L (3.5-5.1); SODIUM 138 MMOL/L (135-145); TOTAL CARBON DIOXIDE 24.1 MMOL/L (24-32); eCRCL 95 ML/MIN; eGFR > 90 ML/MIN
[2025-01-03 09:10] LABS: PLATELET ESTIMATE NORMAL; TOTAL CELLS COUNTED 100
[2025-01-04 02:00] VITALS: BP 130/83; PULSE 87; RESP 19; TEMP 97.1; O2SAT 95
[2025-01-04 02:30] VITALS: BP_SYST 105; BP_SYST 110; BP_SYST 130; BP_DIAS 68; BP_DIAS 74; BP_DIAS 83; PULSE 104; PULSE 87; PULSE 98
[2025-01-04 07:04] LABS: BASOPHILS # (AUTO) 0.1 X10'3 (0-0.2); BASOPHILS % (AUTO) 0.5 % (0-1); EOSINOPHILS # (AUTO) 0.4 X10'3 (0-0.9); EOSINOPHILS % (AUTO) 2.5 % (0-6); HEMATOCRIT 34.1 % (42.0-52.0); HEMOGLOBIN 11.4 g/dl (14.0-17.9); LYMPHOCYTES # (AUTO) 2.9 X10'3 (1.1-4.8); MEAN CORPUSCULAR HEMOGLOBIN 30.1 PG (27.0-31.0); MEAN CORPUSCULAR HGB CONC 33.4 g/dL (33.0-36.5); MEAN CORPUSCULAR VOLUME 90.1 FL (78-98); MEAN PLATELET VOLUME 8.6 FL (7.4-10.4); MONOCYTES # (AUTO) 1.4 X10'3 (0-0.9); MONOCYTES % (AUTO) 9.8 % (2-12); NEUTROPHILS # (AUTO) 9.6 X10'3 (1.8-7.7); NEUTROPHILS % (AUTO) 67.2 % (42-75); PLATELET COUNT 314 X10'3 (140-440); RED BLOOD COUNT 3.78 X10'6 (4.70-6.10); RED CELL DISTRIBUTION WIDTH 14.3 % (11.5-14.5); WHITE BLOOD COUNT 14.4 X10'3 (4.5-11.0)
[2025-01-04 07:10] LABS: ALBUMIN 3.1 G/DL (3.4-5.0); ANION GAP 10 (8-16); BLOOD UREA NITROGEN 25 MG/DL (7-18); BUN/CREATININE RATIO 29.1 (10.0-20.0); CALCIUM 8.4 MG/DL (8.5-10.1); CHLORIDE 104 MMOL/L (99-107); CREATININE 0.86 MG/DL (0.60-1.10); GLUCOSE 103 MG/DL (70-104); POTASSIUM 4.2 MMOL/L (3.5-5.1); SODIUM 137 MMOL/L (135-145); TOTAL CARBON DIOXIDE 23.4 MMOL/L (24-32); eCRCL 91 ML/MIN; eGFR 90 ML/MIN
[2025-01-04 09:23] VITALS: BP 135/88; PULSE 92; RESP 16; TEMP 98.1; O2SAT 94
== END 2025-01-04 09:41 | DRG 233 ==
LOC: ER 13:50 → UNDOADMIN 16:11 → ED HOLD 16:11 → CICU 2S 21:21 → PCU 3S 01-01 21:22
PROVIDERS: ADMIT Thoracic Surgery (Cardiothoracic Vascular Surgery); ATTEND Thoracic Surgery (Cardiothoracic Vascular Surgery)
PROC: 02100Z9 Bypass Coronary Artery, One Artery from Left Internal Mammary, Open Approach (ICD-10-PCS; 2024-12-26)
PROC: B211YZZ Fluoroscopy of Multiple Coronary Arteries using Other Contrast (ICD-10-PCS; 2024-12-26)
PROC: 021109W Bypass Coronary Artery, Two Arteries from Aorta with Autologous Venous Tissue, Open Approach (ICD-10-PCS; 2024-12-26)
PROC: 5A02210 Assistance with Cardiac Output using Balloon Pump, Continuous (ICD-10-PCS; 2024-12-26)
PROC: 06BP4ZZ Excision of Right Saphenous Vein, Percutaneous Endoscopic Approach (ICD-10-PCS; 2024-12-26)
PROC: B215YZZ Fluoroscopy of Left Heart using Other Contrast (ICD-10-PCS; 2024-12-26)
PROC: B41D1ZZ Fluoroscopy of Aorta and Bilateral Lower Extremity Arteries using Low Osmolar Contrast (ICD-10-PCS; 2024-12-26)
PROC: 5A1221Z Performance of Cardiac Output, Continuous (ICD-10-PCS; 2024-12-26)
PROC: B24BZZ4 Ultrasonography of Heart with Aorta, Transesophageal (ICD-10-PCS; 2024-12-26)
PROC: 30233R1 Transfusion of Nonautologous Platelets into Peripheral Vein, Percutaneous Approach (ICD-10-PCS; 2024-12-26)
PROC: 4A023N7 Measurement of Cardiac Sampling and Pressure, Left Heart, Percutaneous Approach (ICD-10-PCS; principal; 2024-12-26 21:36)
PROC: 30233N1 Transfusion of Nonautologous Red Blood Cells into Peripheral Vein, Percutaneous Approach (ICD-10-PCS; 2024-12-28)
DX: I21.29 ST elevation (STEMI) myocardial infarction involving other sites (principal); R57.0 Cardiogenic shock; E78.5 Hyperlipidemia, unspecified; E11.65 Type 2 diabetes mellitus with hyperglycemia; I95.9 Hypotension, unspecified; D72.823 Leukemoid reaction; I10 Essential (primary) hypertension; I25.5 Ischemic cardiomyopathy; I25.110 Atherosclerotic heart disease of native coronary artery with unstable angina pectoris; D64.9 Anemia, unspecified; D69.6 Thrombocytopenia, unspecified; E66.9 Obesity, unspecified; Z79.899 Other long term (current) drug therapy; Z87.891 Personal history of nicotine dependence; Z87.442 Personal history of urinary calculi; Z68.30 Body mass index [BMI] 30.0-30.9, adult
CPT/HCPCS: 0232T; 33967; 93306; 93312; 93325; 93458; 96361; 96365; 99291; 36415; 36430; 36600; 71045; 80048; 80053; 82330; 82435; 82803; 82947; 82948; 83735; 83880; 84100; 84132; 84295; 84478; 84484; 85007; 85018; 85025; 85347; 85384; 85610; 85730; 86885; 86900; 86901; 86920; 87081; 93005; 94002; 94640; 94760; 97110; 97116; 97161; 97530; 99152; 99153; A4615; A4618; A4620; A6258; A6402; A6449; A7000; A7048; C1725; C1729; C1751; C1760; C1769; G0378; J0131; J0171; J0461; J0665; J0690; J1250; J1644; J1815; J1940; J2003; J2150; J2250; J2260; J2270; J2405; J2440; J2704; J2720; J2765; J2919; J3010; J3246; J3370; J3475; J3480; J3490; J7030; J7040; J7050; J7060; J7120; P9016; P9035; P9045; P9047; Q9967